=== PATIENT | female | born 1985 | race Caucasian/White ===

== ENCOUNTER → 2019-04-14 | Outpatient (CLI) | payer BC ==
--- NOTE | 2019-04-14 10:49 | KCIC ---
Bilateral diagnostic digital mammograms: Reason for examination: Bilateral lumps on clinical exam. Milky discharge from the right nipple. Baseline exam. Interpretation was made with the benefit of CAD. The skin and nipples show no abnormalities. No abnormal axillary lymph nodes are seen. The breast parenchyma is extremely dense. (Breast density: Category D.) There appear to be small nodules bilaterally which show no associated calcifications. There are no suspicious calcifications or architectural distortion. Impression: Extremely dense breast parenchyma with small nodule suggested bilaterally. Ultrasound to follow. Your patient's mammogram demonstrates that she has dense breast tissue (breast density category C or D), which could hide abnormalities, and if she has other risk factors for breast cancer that have been identified, she might benefit from supplemental screening tests that may be suggested by you as her ordering physician. Dense breast tissue, in and of itself, is a relatively common condition. Therefore, this information is not provided to cause undue concern, but rather to raise your awareness and to promote discussion with your patient regarding the presence of other risk factors, in addition to dense breast tissue. Your patient's mammography results will be sent to her. BI-RAD Category 0: Incomplete. Needs additional imaging evaluation. Bilateral breast ultrasound: Bilateral whole breast ultrasound including evaluation of all 4 quadrants and the retroareolar and axillary regions of both breasts was performed. In the retroareolar 3:00 position, there is a 4.8 x 3.6 mm hypoechoic fibrocystic type lesion with a benign appearance. In the 7:00 position 5 cm from the nipple, there is a 3.7 mm circumscribed hypoechoic lesion consistent with some focal fibrocystic change. In the 10:00 position 8 cm from the nipple, there is a circumscribed 8.7 mm lesion in parallel orientation. This may represent an intramammary lymph node or possible fibroadenoma. In the 11:00 position 5 cm from the nipple, there is a 7.7 x 6.9 mm simple cyst. No suspicious-appearing nodules are seen. No abnormal appearing lymph nodes are seen in the right axilla. In the left breast, there is some ductal ectasia. In the 11:00 position 3 cm from the nipple, there is a small hypoechoic circumscribed lesion 3.2 mm in size which probably represents a fibrocystic lesion or small fibroadenoma. No other cystic or solid lesions are seen. No abnormal appearing lymph nodes are seen in the left axilla. IMPRESSION: Small subcentimeter benign-appearing nodules consistent with fibrocystic lesions bilaterally. Possibly small 8.7 mm fibroadenoma or intramammary lymph node in the 10:00 position of the right breast. No suspicious lesion seen. Recommend reevaluation with ultrasound in 6 months. BI-RADS Category 3: Probably Benign. "Our facility is accredited by the [employer] Mammography [employer]." This patient's information has been entered into a reminder system for the patient to be notified with the results of her examination and a target date for the next mammogram. Electronically signed by: Nevaeh Eckert MD (04/14/2019 10:46 AM) [id number]
== END | disposition home or self-care (01) ==
LOC: KCIC MAMMO 08:53
PROVIDERS: ATTEND Obstetrics & Gynecology
DX: N60.42 Mammary duct ectasia of left breast (principal); N60.01 Solitary cyst of right breast; N64.89 Other specified disorders of breast; N63.22 Unspecified lump in the left breast, upper inner quadrant; N63.14 Unspecified lump in the right breast, lower inner quadrant; N63.13 Unspecified lump in the right breast, lower outer quadrant
CPT/HCPCS: 76641; 77066

== ENCOUNTER → 2020-01-06 | Outpatient (CLI) | payer BC ==
--- NOTE | 2020-01-06 14:19 | KCIC ---
Bilateral breast ultrasound: Reason for examination: Follow-up nodules. Comparison is made to previous study dated 04/14/2019. Bilateral breast ultrasound including the retroareolar and axillary regions of both breasts was performed. In the right breast, there continue to be small benign-appearing cystic and fibrocystic lesions which are subcentimeter in size. No suspicious nodules are seen. No abnormal appearing lymph nodes are seen in the right axilla. In the left breast, there continues to be a small nodule at the 11:00 position 3 cm from the nipple which is stable. No suspicious appearing lymph nodes are seen in the left axilla. IMPRESSION: Continued presence of benign-appearing nodules bilaterally. Recommend continued 6 month follow-up which can be performed at the time of bilateral mammograms. BI-RADS Category 3: Probably Benign. "Our facility is accredited by the [employer]amm[employer]." This patient's information has been entered into a reminder system for the patient to be notified with the results of her examination and a target date for the next mammogram. Electronically signed by: Nevaeh Eckert MD (01/06/2020 2:16 PM) [id number]
== END | disposition home or self-care (01) ==
LOC: KCIC US 12:51
PROVIDERS: ATTEND Physician Assistant
DX: N63.22 Unspecified lump in the left breast, upper inner quadrant (principal); N63.10 Unspecified lump in the right breast, unspecified quadrant
CPT/HCPCS: 76641